=== PATIENT | female | born 1960 | race Caucasian/White ===

== ENCOUNTER 2024-02-08 12:39 | Emergency (ER) | payer OTHER ==
[2024-02-08 12:46] VITALS: BP 155/97; PULSE 111; RESP 18; TEMP 98.5; BMI 31.9
[2024-02-08] MEDS ORDERED: DIPHTH,PERTUSS(ACELL),TET 0.5 ML DISP.SYRIN IM ONE (13:33)
[2024-02-08] MEDS: DIPHTH,PERTUSS(ACELL),TET 0.5 ML DISP.SYRIN IM ONE (13:42)
[2024-02-08] MEDS ORDERED: LIDOCAINE HCL 1%, 10 MG/ML (20ML VIAL) ONE (15:23)
[2024-02-08] MEDS: LIDOCAINE 1%/EPI 1:100000 (20 ML MULTI DOSE VIAL) IJ ONE (16:10)
[2024-02-08] MEDS: CEPHALEXIN MONOHYDRATE 500 MG CAPSULE (UD) PO ONE (17:21)
[2024-02-08] MEDS ORDERED: CEPHALEXIN MONOHYDRATE 500 MG CAPSULE (UD) ONE (17:21)
== END 2024-02-08 17:25 | disposition home or self-care (01) ==
LOC: JER 12:39
PROC: 0HQ0XZZ Repair Scalp Skin, External Approach (ICD-10-PCS; principal; 2024-02-08)
PROC: 3E0234Z Introduction of Serum, Toxoid and Vaccine into Muscle, Percutaneous Approach (ICD-10-PCS; 2024-02-08)
DX: S01.01XA Laceration without foreign body of scalp, initial encounter (principal); W01.0XXA Fall on same level from slipping, tripping and stumbling without subsequent striking against object, initial encounter; Z23 Encounter for immunization
CPT/HCPCS: 70450-TC; 70486-TC; 72125-TC; 90715; 99284-25

== ENCOUNTER 2024-02-15 07:04 | Emergency (ER) | payer OTHER ==
[2024-02-15 07:21] VITALS: BP 152/87; PULSE 99; RESP 16; TEMP 98.1; BMI 31.9
== END 2024-02-15 08:03 | disposition home or self-care (01) ==
LOC: JER 07:04 → JERFT 07:04
DX: Z48.02 Encounter for removal of sutures (principal)
CPT/HCPCS: 99281-25

== ENCOUNTER 2024-02-18 06:50 | Emergency (ER) | payer OTHER ==
[2024-02-18 06:58] VITALS: BP 141/86; PULSE 72; RESP 18; TEMP 97.2; BMI 31.9
== END 2024-02-18 07:45 | disposition home or self-care (01) ==
LOC: JERFT 06:50 → JER 06:50 → JERFT 07:45
DX: Z48.02 Encounter for removal of sutures (principal)
CPT/HCPCS: 99281-25